=== PATIENT | female | born 1970 | race Asian ===

== ENCOUNTER → 2017-12-04 | Day surgery (SDC) | payer OTHER ==
[~2017-12-04] VITALS: Ht 167.6 cm; Wt 68.0 kg
[~2017-12-04] MED LIST: DEPO-PROVE150 MG/11 IM; MOTRIN 600 MG600 MG PO; PERCOCET 325 MG1 TA2 PO
--- NOTE | 2017-12-04 16:16 | Operative Report ---
Operative/Inv Procedure Report Surgery Date: 12/04/17 Name of Procedure: D&C hysteroscopy Pre-Operative Diagnosis: Metromenorrhagia Post-Operative Diagnosis: Same Estimated Blood Loss: scant Surgeon/Jigger Crown Pouncing Machine Operator: Eunice Blackman MD Anesthesia: moderate sedation Operative/Procedure Note Note: Patient was taken to the operating room placed in dorsal supine position. After adequate anesthesia, patient was prepped and draped for surgery. Examination under anesthesia was performed. CO2 tenaculum was placed on the anterior lip of the cervix gentle downward traction was used. The cervix was dilated 29 Hegar to left insertion of the hysteroscope. Under direct visualization to hysteroscopy was performed using gas hysteroscope was removed and endocervical curettage was performed. And endometrial curettage was performed. All instruments removed from the vagina. The counts were correct the patient was awakened from anesthesia. And transported to recovery room awake and alert. Findings: Normal lining 10-12 week fibroid uterus no adnexal masses
== END ==
LOC: STS 02:22
DX: N92.1 Excessive and frequent menstruation with irregular cycle (principal); D25.9 Leiomyoma of uterus, unspecified; N72 Inflammatory disease of cervix uteri
CPT/HCPCS: 81025; 88305; J2250

== ENCOUNTER 2018-05-07 02:13 | Inpatient (IN) | payer OTHER ==
[~2018-05-07] VITALS: Ht 167.6 cm; Wt 68.0 kg
[2018-05-07 07:00] LABS: ABSOLUTE BASOPHIL COUNT 0.1 /CUMM (0.0-0.2); ABSOLUTE EOSINOPHIL COUNT 0.1 /CUMM (0.0-0.7); ABSOLUTE GRANULOCYTE CT 3.1 /CUMM (1.4-6.5); ABSOLUTE LYMPH COUNT 1.9 /CUMM (1.2-3.4); ABSOLUTE MONOCYTE COUNT 0.5 /CUMM (0.10-0.60); BASOPHIL % 1.1 % (0.0-2.0); EOSINOPHIL % 1.6 % (0-5); GRANULOCYTE % 54.6 % (42.2-75.2); MEAN CORPUSCULAR HGB 19.8 PG (27.0-31.0); MEAN CORPUSCULAR HGB CONC 31.8 G/DL (33.0-37.0); MEAN CORPUSCULAR VOLUME 62.3 FL (81.0-99.0); MEAN PLATELET VOLUME 7.9 FL (7.4-10.4); PLATELET COUNT 336 /CUMM (130-400); RBC DISTRIBUTION WIDTH 16.5 % (11.5-14.5); RED BLOOD CELL CT 5.63 /CUMM (4.20-5.40); WHITE BLOOD CELL COUNT 5.7 /CUMM (4.8-10.8)
[2018-05-07 07:12] LABS: PT 11.7 SEC (9.4-12.5); PTT 33 SEC (25-37)
--- NOTE | 2018-05-07 10:29 | Operative Report ---
Operative/Inv Procedure Report Surgery Date: 05/07/18 Name of Procedure: Total abdominal hysterectomy bilateral salpingectomy and removal of stents Pre-Operative Diagnosis: Metromenorrhagia Post-Operative Diagnosis: Same Estimated Blood Loss: 500 Surgeon/Art Historian: Yehuda ANTHONY,Eunice Deutsch and Dr. Jed Mc Anesthesia: general endotracheal tube, block Operative/Procedure Note Note: Patient was taken the operating room placed prone position after adequate anesthesia patient placed in dorsolithotomy position the vagina from dorsal fashion bladder was catheterized examination under anesthesia performed on Dr. Choi placed stents patient was returned supine position after the abdomen prepped draped so fashion through a Pfannenstiel skin incision skin was cut with a knife was carried down to rectus fascia rectus fascia was dissected bluntly as well as sharply off the rectus sheath perineal cavity was entered bluntly the Sargent O'Dioni was placed in usual fashion patient placed in Trendelenburg lap pads were placed into the abdomen at this point a 14 week size fibroid uterus was noted I the round ligament on the right was suture ligated using 0 round ligament left for suture-ligated 0 the bladder flap was developed sequentially the cervical branches of the uterine artery that was visible were clamped using Heaneys cut and oversewn the specimen was removed I at this point the cervix the uterine branches of the cervical arteries were clamped and cut and oversewn using 0 on Romel ducts were placed at the bases cervix the specimen was removed using Bailee's hemostasis was apparent the cuff was oversewn running locking suture was indicated interrupted [id number] for hemostasis on at this point the right tube was clamped 2 I cut removed and oversewn 3 using 0 the left tube was clamped cut 2 and oversewn 2 using 0 I at this point oral pedicles were reexamined and resutured the cuff was found to be hemostatic the rest was applied to the surgical cuff patient tolerated that well on a the lap pads removed from the abdomen the counts correct peritoneum surprise me 0 fascia was reprocessed and to continue sutures #1 subcutaneous tissue was Bovie coagulated irrigated skin was reapproximated tatyana at the end the case the counts correct patient tolerated procedure well she was extubated awakened from anesthesia and transferred recovery room awake alert
--- NOTE | 2018-05-07 10:46 | Operative Report ---
Operative/Inv Procedure Report Surgery Date: 05/07/18 Name of Procedure: cystoscopy: bilateral stent placement Pre-Operative Diagnosis: fibroid Post-Operative Diagnosis: same Estimated Blood Loss: scant Surgeon/Canvas Cutter Hand: MD Choi Arnold-urology Anesthesia: general endotracheal tube Specimens: urine culture Complications: none Operative/Procedure Note Note: The patient was taken to the operating room and placed on the OR table in supine position. Timeout was performed, with the patient awake, to confirm identify, planned procedures, anesthesia, antibiotics and other pertinent sharad-operative information. After adequate anesthesia, and IV antibiotics, the patient was placed in lithotomy Yellow-fin stirrups. She was then draped and prepped in the usual surgical fashion, including a vaginal prep. A 22 [place]erratian cystoscope sheath with a 30 angle lens was inserted into the bladder without significant difficulty. The bladder was thoroughly and systematically examined, and was noted to be free of tumor, free of stone, free of endometriosis. Both ureteral orifices were in their orthotopic positions with clear reflux bilaterally. Under direct visualization the left orifice was intubated with a 5 Montserratian whistle-tip catheter, which was advanced easily into the left kidney pelvis. The right ureteral orifice was intubated with a second 5 [place]err[place]ian ureteral whistle tip catheter, and advanced into the right renal pelvis without difficulty. For identification purposes the blue marked stent went into the left kidney and the right ureteral stent was marked red. Urine culture was obtained and sent to pathology. The cystoscope was then removed leaving both stents in proper place. An 18 [place]erratian Faulkner catheter was inserted draining clear fluid and 10 mL of sterile water was then placed in the balloon. The ends ureteral stents, which protruded externally, were taped to the Faulkner catheter in order to secure their position. The individual ureteral stents were then connected to their individual drainage devices. All sponge needle and instrument count were correct at the end of this case. The patient tolerated the procedure well. The patient was then placed in supine position with Venodyne's in place. At this point, Dr. Rodarte was able to proceed with the patient's surgery. Discharge Disposition: proceed with dr. rodarte CC: Toney Choi MD
[2018-05-07 12:54] VITALS: BP 130/70
[2018-05-07 14:53] VITALS: BP 124/60
[2018-05-07 17:02] VITALS: BP 144/90
[2018-05-07 19:28] VITALS: BP 140/80
[2018-05-07 22:09] VITALS: BP 150/80
[2018-05-08] VITALS (7 sets, daily range): BP systolic 110–150; BP diastolic 68–90
[2018-05-08 08:29] LABS: ABSOLUTE BASOPHIL COUNT 0 /CUMM (0.0-0.2); ABSOLUTE EOSINOPHIL COUNT 0 /CUMM (0.0-0.7); EOSINOPHIL % 0 % (0-5)
[2018-05-08 08:58] LABS: ABSOLUTE GRANULOCYTE CT 8.1 /CUMM (1.4-6.5); ABSOLUTE LYMPH COUNT 1.3 /CUMM (1.2-3.4); ABSOLUTE MONOCYTE COUNT 1.1 /CUMM (0.10-0.60); BASOPHIL % 0.3 % (0.0-2.0); GRANULOCYTE % 76.5 % (42.2-75.2); HEMATOCRIT 30.6 % (37-47); MEAN CORPUSCULAR VOLUME 62.7 FL (81.0-99.0); MEAN PLATELET VOLUME 8.6 FL (7.4-10.4); PLATELET COUNT 314 /CUMM (130-400); RED BLOOD CELL CT 4.89 /CUMM (4.20-5.40)
[2018-05-08 09:00] LABS: WHITE BLOOD CELL COUNT 10.6 /CUMM (4.8-10.8)
[2018-05-08] MEDS ORDERED: PERCOCET 5-3251 EACH PO (09:01)
[2018-05-08] MEDS ORDERED: IBUPROFEN800 M1 PO (09:01)
--- NOTE | 2018-05-08 09:06 | PN- Post Delivery/GYN ---
Subjective Subjective: No complaints Objective Last 24 Hrs of Vital Signs/I&O Vital Signs Date Time Temp Pulse Resp B/P B/P Pulse O2 O2 Flow FiO2 Mean Ox Delivery Rate 05/08 0835 98.3 74 20 150/90 100 Nasal 3.0L Cannula 05/08 0559 98.7 84 20 142/84 99 Nasal 3.0L Cannula 05/08 0333 97.8 82 20 150/86 100 Room Air 05/07 2209 99.0 74 20 150/80 98 05/07 1928 98.6 74 20 140/80 96 05/07 1702 98.4 78 20 144/90 99 05/07 1453 97.5 74 18 124/60 99 Nasal 3.0L Cannula 05/07 1254 98.5 75 20 130/70 98 Nasal 3.0L Cannula 05/07 1245 100 Nasal 3.0L Cannula Intake & Output 05/08 1600 05/08 0800 05/08 0000 Intake Total 1000 650.8 Output Total 1250 800 Balance -250 -149.2 Intake, IV 1000 600.8 Intake, Oral 50 Output, Urine 1250 800 Physical Exam: Thin female in no apparent distress HEENT anicteric Lungs clear Abdomen soft nontender distention Incision clean dry and intact Extremities negative edema negative Homans Assessment/Plan Assessment/Plan Assessment is status post total abdominal hysterectomy bilateral salpingectomy and removal of stents Plan advance diet advance ambulation possible discharge on Friday
[2018-05-09 06:17] VITALS: BP 128/86
== END 2018-05-09 08:40 | DRG 519 ==
LOC: SDA 02:13 → 2NA 02:13 → ENRESERV 10:47 → ENTRNSPT 12:00 → EDTRNSPT 12:25 → EDTRNSPTSTS 12:25 → 2NA 12:32 → CMPTRNSPT 12:45 → 2NA 05-09 08:40
PROVIDERS: Specialist
PROC: 0UT90ZZ Resection of Uterus, Open Approach (ICD-10-PCS; principal; 2018-05-07)
PROC: 0UT70ZZ Resection of Bilateral Fallopian Tubes, Open Approach (ICD-10-PCS; principal; 2018-05-07)
PROC: 0T788DZ Dilation of Bilateral Ureters with Intraluminal Device, Via Natural or Artificial Opening Endoscopic (ICD-10-PCS; 2018-05-07)
PROC: 3E0T3BZ Introduction of Anesthetic Agent into Peripheral Nerves and Plexi, Percutaneous Approach (ICD-10-PCS; 2018-05-07)
DX: D25.9 Leiomyoma of uterus, unspecified (principal); N92.1 Excessive and frequent menstruation with irregular cycle; K21.9 Gastro-esophageal reflux disease without esophagitis
CPT/HCPCS: 2NASP; 36415; 36592; 81001; 81025; 87086; J0131; J0694; J1170; J1200; J1650; J1885; J2405; J3490